=== PATIENT | male | born 1975 | race Native Hawaiian/Other Pacific Islander ===

== ENCOUNTER 2017-12-13 10:21 | Outpatient (CLI) | payer OTHER | END 2017-12-13 19:28 | disposition home or self-care (01) | LOC: US 10:21 | DX: R22.41 Localized swelling, mass and lump, right lower limb (principal) ==

== ENCOUNTER 2023-02-08 09:56 | Outpatient (CLI) | payer OTHER | END 2023-02-08 19:58 | disposition home or self-care (01) | LOC: US 09:56 | PROVIDERS: ATTEND Nurse Practitioner Family | DX: N18.31 Chronic kidney disease, stage 3a (principal) ==